=== PATIENT | male | born 1985 | race Caucasian/White ===

== ENCOUNTER 2017-12-25 16:47 | Emergency (ER) | payer SELFPAY ==
[2017-12-25] MEDS ORDERED: Sodium Chloride 0.9% 1,000 ML IV ONE (17:15)
[2017-12-25] MEDS ORDERED: Ondansetron 4 MG/2 ML SDV IVPUSH ONE (17:15)
--- NOTE | 2017-12-25 17:25 | EDM.PDOC ---
ED HPI GENERAL MEDICAL PROBLEM - General Chief Complaint: Gastrointestinal Problem Stated Complaint: VOMITING/NAUSEA/WEAKNESS Time Seen by Provider: 12/25/17 17:15 Source of Information: Reports: Patient History Limitations: Reports: No Limitations - History of Present Illness INITIAL COMMENTS - FREE TEXT/NARRATIVE: HISTORY AND PHYSICAL: History of present illness: Patient is a 32-year-old male who presents to the emergency room with complaints of nausea, vomiting and weakness 5 days. He states Thursday through Thursday he had multiple bouts of vomiting. Reports he was unable to keep any food down and Thursday have been better but still has some intermittent vomiting. He denies any fever, chills, chest pain or shortness of breath. Denies any abdominal pain, dysuria, diarrhea or constipation. Review of systems: As per history of present illness and below otherwise all systems reviewed and negative. Past medical history: As per history of present illness and as reviewed below otherwise noncontributory. Surgical history: As per history of present illness and as reviewed below otherwise noncontributory. Social history: No reported history of drug or alcohol abuse. Family history: As per history of present illness and as reviewed below otherwise noncontributory. Physical exam: General: Well-developed and well-nourished 32-year-old male. Alert and oriented. Nontoxic appearing and in no acute distress. HEENT: Atraumatic, normocephalic, pupils equal and reactive bilaterally, negative for conjunctival pallor or scleral icterus, mucous membranes moist, throat clear, neck supple, nontender, trachea midline. TMs normal bilaterally. No drooling or trismus noted. No meningeal signs Lungs: Clear to auscultation, breath sounds equal bilaterally, chest nontender. Heart: S1S2, regular rate and rhythm without overt murmur Abdomen: Soft, nondistended, nontender. Negative for masses or hepatosplenomegaly. Negative for costovertebral tenderness. Pelvis: Stable nontender. Genitourinary: Deferred. Rectal: Deferred. Skin: Intact, warm, dry. No lesions or rashes noted. Extremities: Atraumatic, negative for cords or calf pain. Neurovascular unremarkable. Neuro: Awake, alert, oriented. Cranial nerves II through XII unremarkable. Cerebellum unremarkable. Motor and sensory unremarkable throughout. Exam nonfocal. Notes: Labs are unremarkable. Has had no n/v while here in the ED. Patient is drinking his gatorade without difficulty. Waiting for xray to be completed. X-ray shows no sign of free air, soft tissue masses or suspicious calcifications. There is a nonobstructive bowel gas pattern. Care measures were reviewed with the patient. Will give him a prescription for Zofran. Urged him to follow-up with his primary caregiver if he continues to have any problems. Diagnostics: CBC, CMP, Abdominal series Therapeutics: IV fluid, Zofran, K-Dur Impression: Nausea and vomiting Hypokalemia Plan: 1. [place] diet as tolerated over the next 24-48 hours. Advance as tolerated. Increase potassium into your diet (bananas, green leafy vegetables, etc..) 2. Small frequent sips of fluids to prevent dehydration. 3. Zofran as needed for nausea management. 4. Follow up with your primary medical doctor over the next 1-2 days. If symptoms worsen, new symptoms develop - please return to the ER. Definitive disposition and diagnosis as appropriate pending reevaluation and review of above. Duration: Day(s): - Related Data Allergies Allergy/AdvReac Type Severity Reaction Status Date / Time No Known Allergies Allergy Verified 12/25/17 17:35 Home Meds: Home Meds . [No Known Home Meds] 12/25/17 [History] ED ROS GENERAL - Review of Systems Review Of Systems: ROS reveals no pertinent complaints other than HPI. ED EXAM, GI/ABD - Physical Exam Exam: See Below (See dictation) Course - Vital Signs Last Recorded V/S: Last Vital Signs Temp 97.6 F 12/25/17 17:31 Pulse 82 12/25/17 17:31 Resp 18 12/25/17 17:31 BP 149/96 H 12/25/17 17:31 Pulse Ox 98 12/25/17 17:31 - Orders/Labs/Meds Orders: Active Orders 24 hr Category Date Time Status EKG Documentation Completion [RC] STAT Care 12/25/17 17:15 Active Abdomen Series w Chest 1V [CR] Stat Exams 12/25/17 17:53 Ordered Labs: Laboratory Tests 12/25/17 12/25/17 Range/Units 17:27 17:27 WBC 9.27 (4.0-11.0) K/uL RBC 4.97 (4.50-5.90) M/uL Hgb 17.2 H (13.0-17.0) g/dL Hct 47.5 (38.0-50.0) % MCV 95.6 (80.0-98.0) fL MCH 34.6 H (27.0-32.0) pg MCHC 36.2 (31.0-37.0) g/dL RDW Std Deviation 43.2 (28.0-62.0) fl RDW Coeff of Yohannes 13 (11.0-15.0) % Plt Count 198 (150-400) K/uL MPV 9.90 (7.40-12.00) fL Neut % (Auto) 64.1 (48.0-80.0) % Lymph % (Auto) 18.1 (16.0-40.0) % Atkinson % (Auto) 16.2 H (0.0-15.0) % Eos % (Auto) 1.4 (0.0-7.0) % Baso % (Auto) 0.2 (0.0-1.5) % Neut # (Auto) 5.9 H (1.4-5.7) K/uL Lymph # (Auto) 1.7 (0.6-2.4) K/uL Atkinson # (Auto) 1.5 H (0.0-0.8) K/uL Eos # (Auto) 0.1 (0.0-0.7) K/uL Baso # (Auto) 0.0 (0.0-0.1) K/uL Nucleated RBC % 0.0 /100WBC Nucleated RBCs # 0 K/uL Sodium 135 L (136-148) mmol/L Potassium 3.1 L (3.5-5.1) mmol/L Chloride 98 (98-107) mmol/L Carbon Dioxide 24.9 (21.0-32.0) mmol/L BUN 9 (7.0-18.0) mg/dL Creatinine 1.1 (0.8-1.3) mg/dL Est Cr Clr Drug Dosing TNP Estimated GFR (MDRD) > 60.0 ml/min Glucose 150 H (74-106) mg/dL Calcium 9.9 (8.5-10.1) mg/dL Total Bilirubin 1.6 H (0.2-1.0) mg/dL AST 55 H (15-37) IU/L ALT 113 H (14-63) IU/L Alkaline Phosphatase 61 (46-116) U/L Total Protein 8.2 (6.4-8.2) g/dL Albumin 4.3 (3.4-5.0) g/dL Globulin 3.9 H (2.0-3.5) g/dL Albumin/Globulin Ratio 1.1 L (1.3-2.8) Meds: Medications Discontinued Medications Generic Name Dose Route Start Last Admin Trade Name Fresara PRN Reason Stop Dose Admin Sodium Chloride 1,000 mls @ 999 mls/hr 12/25/17 17:15 12/25/17 17:31 Normal Saline IV 12/25/17 18:15 999 mls/hr STAT ONE Administration Ondansetron HCl 4 mg 12/25/17 17:15 12/25/17 17:31 Zofran IVPUSH 12/25/17 17:16 4 mg ONETIME ONE Administration Potassium Chloride 40 meq 12/25/17 18:08 Klor-Con M20 PO 12/25/17 18:09 NOW STA Departure - Departure Time of Disposition: 19:00 Disposition: Home, Self-Care 01 Clinical Impression: Hypokalemia Nausea & vomiting Qualifiers: Vomiting type: unspecified Vomiting Intractability: non-intractable Qualified Code(s): R11.2 - Nausea with vomiting, unspecified - Discharge Information Instructions: Nausea and Vomiting, Adult Referrals: PCP,None [Primary Care Provider] - Forms: ED Department Discharge Additional Instructions: The following information is given to patients seen in the emergency department who are being discharged to home. This information is to outline your options for follow-up care. We provide all patients seen in our emergency department with a follow-up referral. The need for follow-up, as well as the timing and circumstances, are variable depending upon the specifics of your emergency department visit. If you don't have a primary care physician on staff, we will provide you with a referral. We always advise you to contact your personal physician following an emergency department visit to inform them of the circumstance of the visit and for follow-up with them and/or the need for any referrals to a consulting specialist. The emergency department will also refer you to a specialist when appropriate. This referral assures that you have the opportunity for follow-up care with a specialist. All of these measure are taken in an effort to provide you with optimal care, which includes your follow-up. Under all circumstances we always encourage you to contact your private physician who remains a resource for coordinating your care. When calling for follow-up care, please make the office aware that this follow-up is from your recent emergency room visit. If for any reason you are refused follow-up, please contact the [facility] Emergency Department at and asked to speak to the emergency department charge nurse. [facility] [address] [place] [id number] 1. [place] diet as tolerated over the next 24-48 hours. Advance as tolerated. Increase potassium into your diet (bananas, green leafy vegetables, etc..) 2. Small frequent sips of fluids to prevent dehydration. 3. Zofran as needed for nausea management. 4. Follow up with your primary medical doctor over the next 1-2 days. If symptoms worsen, new symptoms develop - please return to the ER. - My Orders Last 24 Hours: My Active Orders 12/25/17 17:15 EKG Documentation Completion [RC] STAT 12/25/17 17:53 Abdomen Series w Chest 1V [CR] Stat - Assessment/Plan Last 24 Hours: My Active Orders 12/25/17 17:15 EKG Documentation Completion [RC] STAT 12/25/17 17:53 Abdomen Series w Chest 1V [CR] Stat
[2017-12-25 17:59] LABS: CHLORIDE,CL 98 mmol/L (98-107); SODIUM,NA 135 mmol/L (136-148)
[2017-12-25] MEDS ORDERED: Potassium Chloride 20 MEQ Tab.ER PO STA (18:08)
--- NOTE | 2017-12-28 09:51 | CR ---
EXAM DATE: 12/25/17 PATIENT'S AGE: 32 Patient: JAMAL BENITEZ Facility: [place], [place] Site . Site : 1985 Study: XRay Chest -12/25/2017 6:53:25 PM Ordering Physician: Doctor Dunn Final Report: INDICATION: abd pain TECHNIQUE: Chest 1 view COMPARISON: None FINDINGS: Cardiovascular and mediastinum: Heart size and vasculature are normal in caliber and appearance. Mediastinum is within normal limits. Lungs and pleural space: No focal consolidation. No sign of pleural effusion. No pneumothorax. Bones and soft tissues: No significant findings. IMPRESSION: No acute cardiopulmonary disease. Dictated by Sebastián Jensen MD @ 12/25/2017 6:57:37 PM Dictated by: Sebastián Jensen MD @ 12/25/2017 18:57:45 (Electronic Signature) Patient: JAMAL BENITEZ Facility: [place], [place] Site . Site : 1985 Study: XRay Abdomen/Pelvis -12/25/2017 6:53:31 PM Ordering Physician: Doctor Dunn Final Report: INDICATION: abd pain TECHNIQUE: Abdomen 4 view COMPARISON: None FINDINGS: Bowel: Nonobstructive bowel gas pattern. Soft tissues: No sign of free air. No sign of soft tissue mass. No suspicious calcifications. Bones: Unremarkable for age. IMPRESSION: Nonobstructive bowel gas pattern. Dictated by Sebastián Jensen MD @ 12/25/2017 6:58:26 PM Dictated by: Sebastián Jensen MD @ 12/25/2017 18:58:35 (Electronic Signature) Report Signed by Proxy. DEVONTE
== END 2017-12-25 19:14 | disposition home or self-care (01) ==
LOC: MW.ED 16:47
DX: E87.6 Hypokalemia (principal)
CPT/HCPCS: 36415; 74022; 80053; 85025; 93005; 96361; 96374; 99284; A9270; J2405; J7040

== ENCOUNTER 2022-09-04 13:09 | Emergency (ER) | payer MEDICAID ==
[2022-09-04 16:12] LABS: CARBON DIOXIDE,CO2 23.7 mmol/L (21.0-32.0); POTASSIUM,K 3.8 mmol/L (3.5-5.1)
[2022-09-04] MEDS ORDERED: oxyCODONE 5 MG Tab PO ONE (16:51)
== END 2022-09-04 19:30 | disposition home or self-care (01) ==
LOC: MW.ED 13:09
DX: R60.0 Localized edema (principal); M21.372 Foot drop, left foot; F17.210 Nicotine dependence, cigarettes, uncomplicated
CPT/HCPCS: 36415; 72148; 80048; 85027; 99284; A9270